=== PATIENT | female | born 1980 | race Caucasian/White ===

== ENCOUNTER → 2022-04-30 | Outpatient (CLI) | payer MEDICAID ==
--- NOTE | 2022-04-30 11:04 | MM ---
Reason for Exam: Screening (asymptomatic). Last mammogram was performed 1 year(s) and 2 month(s) ago. Patient History: Menarche at age 11. Patient has no children. Last menstrual period: 04/10/2022 Risk Values: Uzma 5 year model risk: 0.8%. NCI Lifetime model risk: 10.8%. Tissue Density: There are scattered fibroglandular densities. Findings: Analyzed By CAD. Benign-appearing bilateral axillary lymph nodes are noted. There is no suspicious new group of microcalcifications or new suspicious mass in either breast. Overall Assessment: Negative, BI-RAD 1 Management: Screening Mammogram of both breasts in 1 year. A clinical breast exam by your physician is recommended on an annual basis and results should be correlated with mammographic findings. Electronically signed and approved by: Samuel Valle M.D.
== END | disposition home or self-care (01) ==
LOC: RADMAMWWP 07:47
PROVIDERS: ATTEND Obstetrics & Gynecology
DX: Z12.31 Encounter for screening mammogram for malignant neoplasm of breast (principal)
CPT/HCPCS: 77063; 77067

== ENCOUNTER → 2023-01-30 | Outpatient (CLI) | payer MEDICAID ==
[2023-01-30 16:59] LABS: Basophils # (A) 0.05 X 10*3/uL (0.00-0.10); Basophils % (A) 0.7 %; Eosinophils # (A) 0.22 X 10*3/uL (0.04-0.35); Eosinophils % (A) 3.1 %; HCT 42.5 % (37.2-46.3); HGB 14.3 d/dL (12.0-15.0); Lymphocytes # (A) 2.36 X 10*3/uL (0.90-5.00); Lymphocytes % (A) 33.4 %; MCHC 33.6 d/dL (32.0-37.0); MCV 89.1 FL (80.0-97.0); Mean Platelet Volume 9.8 FL (9.5-12.2); Monocytes # (A) 0.48 X 10*3/uL (0.20-1.00); Monocytes % (A) 6.8 %; NRBC Per 100 WBC 0 X 10*3/uL (0.00-0.01); Neutrophils # (A) 3.93 X 10*3/uL (1.80-7.70); Neutrophils % (A) 55.7 %; Platelet Count 243 X 10*3/uL (140-440); RBC 4.77 X 10*6/uL (4.10-5.20); RDW 12.3 % (11.5-14.5); WBC 7.06 X 10*3/uL (4.50-10.00)
[2023-01-30 17:18] LABS: ALT 16 U/L (8-44); AST 19 U/L (13-35); Albumin 4.2 d/dL (3.8-4.9); Albumin/Globulin Ratio 1.83 Ratio (1.60-3.17); Alkaline Phosphatase 79 U/L (41-126); BUN/Creat Ratio 9.71 Ratio (12.00-20.00); Blood Urea Nitrogen 6.8 mg/dL (9.0-27.0); Carbon Dioxide 25.3 mmol/L (21.6-31.8); Chloride 105 mmol/L (96-109); Chol/HDL Ratio 5.45 Ratio; Globulin 2.3 d/dL (1.6-3.3); Glucose 93 mg/dL (70-110); LDL Cholesterol,Calculated 158.7 mg/dL (0.0-131.0); Magnesium 2.2 mg/dL (1.5-2.4); Sodium 139 mmol/L (135-145); Total Bilirubin 0.4 mg/dL (0.3-1.2); Total Protein 6.5 d/dL (6.2-8.2)
== END | disposition home or self-care (01) ==
LOC: LABWHC1 09:11
PROVIDERS: ATTEND Internal Medicine
DX: E88.81 Metabolic syndrome and other insulin resistance (principal)
CPT/HCPCS: 36415; 80053; 80061; 83036; 83735; 84443; 85025

== ENCOUNTER → 2024-10-05 | Outpatient (CLI) | payer MEDICAID ==
--- NOTE | 2024-10-06 06:48 | CA ---
Transthoracic Echo Report Name: Aishwarya Perez Age: 43 Gender: F : 1980 Exam Date: 10/05/2024 11:09 Exam Location: [facility] Ht (in): 65 Wt (lb): 280 Ordering Physician: Quinton Fernández MD ([id number]) Attending/Referring Phys: Moni Barahona NPC [facility]al Health Technician Fartun Bradshaw RDCS Procedure CPT: Indications: I34.0 NONRHEUMATIC MITRAL (VALVE) INSUFFICIENCY Cardiac Hx: Technical Quality: Good Contrast 1: Total Dose (mL): Contrast 2: Total Dose (mL): MEASUREMENTS (Male / Female) Normal Values 2D ECHO LV Diastolic Diameter PLAX 5.1 cm 4.2 - 5.9 / 3.9 - 5.3 cm LV Systolic Diameter PLAX 3.6 cm IVS Diastolic Thickness 0.8 cm 0.6 - 1.0 / 0.6 - 0.9 cm LVPW Diastolic Thickness 0.8 cm 0.6 - 1.0 / 0.6 - 0.9 cm LV Relative Wall Thickness 0.3 RV Internal Dim ED PLAX 3.7 cm LVOT Diameter 1.8 cm LA Systolic Diameter LX 4.0 cm 3.0 - 4.0 / 2.7 - 3.8 cm LV Diastolic Volume MOD BP 111.1 cm??? 67 - 155 / 56 - 104 cm??? LV Systolic Volume MOD BP 47.4 cm??? 22 - 58 / 19 - 49 cm??? LV Ejection Fraction MOD BP 57.3 % >= 55 % LV Diastolic Volume MOD 4C 117.3 cm??? LV Systolic Volume MOD 4C 52.4 cm??? LV Ejection Fraction MOD 4C 55.3 % LV Diastolic Length 4C 7.9 cm LV Systolic Length 4C 6.7 cm LV Diastolic Volume MOD 2C 105.1 cm??? LV Systolic Volume MOD 2C 41.2 cm??? LV Ejection Fraction MOD 2C 60.8 % LV Diastolic Length 2C 7.9 cm LV Systolic Length 2C 6.4 cm LA Volume 55.6 cm??? 18 - 58 / 22 - 52 cm??? LA Volume Index 22.4 cm???/m??? 16 - 28 cm???/m??? DOPPLER MV Peak Velocity 107.9 cm/s MV Peak Gradient 4.7 mmHg MV Mean Velocity 53.6 cm/s MV Mean Gradient 1.3 mmHg MV Velocity Time Integral 29.7 cm MV Area PHT 3.0 cm??? Mitral E Point Velocity 80.7 cm/s Mitral A Point Velocity 79.1 cm/s Mitral E to A Ratio 1.0 MV Deceleration Time 251.1 ms TR Peak Velocity 175.3 cm/s TR Peak Gradient 12.3 mmHg Right Atrial Pressure 5.0 mmHg Pulmonary Artery Systolic Pressu 17.3 mmHg Right Ventricular Systolic Press 17.3 mmHg FINDINGS Left Ventricle Left ventricular ejection fraction is estimated at 55-60 %. Mildly increased left ventricular diastolic Normal left ventricular systolic function with no obvious regional wall motion abnormalities. volume. Right Ventricle Moderate right ventricular dilatation. Right ventricular systolic pressure within normal limits. Right Atrium Mild right atrial dilatation. Left Atrium Mildly increased left atrial diameter. Mildly increased left atrial volume. Mitral Valve Structurally normal mitral valve. No mitral stenosis. Mild to moderate mitral regurgitation. Aortic Valve Trileaflet aortic valve. Thickened aortic valve without stenosis. No aortic stenosis. No aortic regurgitation. Tricuspid Valve Structurally normal tricuspid valve. No tricuspid stenosis. Trace tricuspid regurgitation. Pulmonic Valve Structurally normal pulmonic valve. No pulmonic stenosis. Trace pulmonic regurgitation. Pericardium No pericardial effusion. Aorta Normal size aortic root and proximal ascending aorta. CONCLUSIONS Technically difficult study for interpretation Normal LV systolic function Dilated RV with a normal function Normal pulmonary artery systolic pressure Mild to moderate MR No pericardial effusion Previewed by: Dr. Itz Hernandez MD (Electronically Signed) Final Date: 06 October 2024 06:48
== END | disposition home or self-care (01) ==
LOC: RADECHMAIN 10:30
PROVIDERS: ATTEND Internal Medicine Clinical Cardiac Electrophysiology
DX: I34.0 Nonrheumatic mitral (valve) insufficiency (principal); I51.7 Cardiomegaly
CPT/HCPCS: 93306

== ENCOUNTER → 2024-10-05 | Outpatient (CLI) | payer MEDICAID ==
--- NOTE | 2024-10-05 15:14 | MM ---
Reason for Exam: Screening (asymptomatic). Last mammogram was performed 1 year(s) and 1 month(s) ago. Patient History: Menarche at age 11. Patient has no children. Premenopausal. Risk Values: Uzma 5 year model risk: 0.9%. NCI Lifetime model risk: 10.6%. Prior Study Comparison: 03/16/2021 Bilateral MG 3D work up w/cad [facility], [facility]. 04/30/2022 Bilateral MG 3D screening mammo w/cad, [facility]. 09/01/2023 Bilateral MG 3D screening mammo w/cad, [facility]. Tissue Density: There are scattered areas of fibroglandular density. Findings: Analyzed By CAD. A couple asymmetric densities are unchanged. There is no suspicious group of microcalcifications or new suspicious mass in either breast. Overall Assessment: Benign, BI-RAD 2 Management: Screening Mammogram of both breasts in 1 year. Patient should continue monthly self-breast exams. A clinical breast exam by your physician is recommended on an annual basis. This exam should not preclude additional follow-up of suspicious palpable abnormalities. Note on Uzma scores and lifetime risk: 1. A Uzma score greater than 3% is considered moderate risk. If this is the case, consider specialist referral to assess eligibility for a risk reducing agent. 2. If overall lifetime risk for the development of breast cancer is 20% or higher, the patient may qualify for future screening with alternating mammogram and breast MRI. [facility], , 10/05/2024 3:11 PM. Electronically signed and approved by: Mele Cruz M.D. Radiologist
== END | disposition home or self-care (01) ==
LOC: RADMAMWWP 09:57
PROVIDERS: ATTEND Internal Medicine
DX: Z12.31 Encounter for screening mammogram for malignant neoplasm of breast (principal); R92.323 Mammographic fibroglandular density, bilateral breasts
CPT/HCPCS: 77063; 77067